=== PATIENT | male | born 1960 | race Caucasian/White ===

== ENCOUNTER 2017-06-30 12:36 | Emergency (ER) | payer OTHER | END 2017-06-30 15:17 | disposition home or self-care (01) | LOC: ER 12:36 | DX: S20.222A Contusion of left back wall of thorax, initial encounter (principal); S20.221A Contusion of right back wall of thorax, initial encounter; S30.0XXA Contusion of lower back and pelvis, initial encounter; W10.9XXA Fall (on) (from) unspecified stairs and steps, initial encounter | CPT/HCPCS: 72072 ==